=== PATIENT | female | born 1940 ===

== ENCOUNTER → 2018-06-20 | Outpatient (CLI) | payer OTHER | LOC: GMAM 15:05 | PROVIDERS: ATTEND Family Medicine | DX: I10 Essential (primary) hypertension (principal) ==

== ENCOUNTER → 2018-06-30 | Outpatient (CLI) | payer OTHER ==
--- NOTE | 2018-06-30 15:57 | CT ---
EXAM DESCRIPTION: Chest w/Contrast : Computed Tomography. CLINICAL HISTORY: 78 years Female RIGHT LOWER LOBE PULMONARY NODULE R91.1. Shortness of breath. History of tobacco use. COMPARISON: 2 view chest x-ray 06/20/2018. TECHNIQUE: Spiral-axial scans at 5 x 5 mm intervals through the lungs and thorax with IV contrast. 2.5 x 5 mm lung algorithm axial reconstructions. Coronal and sagittal 2.0 Mm reconstructions. No adverse reactions. Total Exam DLP: 371.64 mGy-cm. This exam was performed according to our departmental dose-optimization program which includes automated exposure control, adjustment of the mA and/or kV according to patient size and/or use of iterative reconstruction technique; to reduce radiation dose to as low as reasonably achievable (ALARA). Nodule measurements under 10 mm are given as mean value of 3 axes diameters. FINDINGS: Lungs and large airways: A mass with multiple lobulations and predominantly smooth margins is present in the subpleural location of the posterior lateral right lower lobe measuring 1.7 x 1.4 cm in the transverse plane and 1.2 cm craniocaudal. Density in the central mass ranges from +46 to +69. Some of the margins are irregular. Vessel enters the superior margin of the mass on axial series 4, image 84. Abutting the pleura with no definitive attachment. 3 mm nodule right lower lobe posterior recess image 4/96. 3 mm solid nodule subpleural lateral right upper lobe on image 4/34. 5 mm lobulated solid nodule posterior right upper lobe subpleural on image 4/35. 3 mm lobulated nodule lateral left lower lobe subpleural image 4/97 pleural-parenchymal scarring inferior lingula. Also medial recesses bilateral lower lobes.. Pleural spaces: Smooth pleural nodule approximately 1 cm diameter with adjacent parenchymal lung stranding on image 4/73. No effusion bilaterally or pneumothorax. Mediastinum and [place]: 1.5 cm short axis subcarinal lymph node. Smaller azygos and AP window nodes. No hilar soft tissue mass or adenopathy. Great vessels and Heart: Atherosclerotic calcification brachiocephalic vessels aortic arch, descending thoracic aorta, and coronary arteries. Soft tissues of neck base, axillae, and chest wall: Elongated enlarged right axillary lymph node with microlobulated margins and increased density of surrounding fat measuring 1.6 x 1.0 cm transverse and 2 cm craniocaudal axis. No other enlarged lymph nodes in the right axilla or left axilla. Enlarged inferior pole of the right thyroid lobe measuring 1.3 cm. Enlarged isthmus 1.1 cm thick and not enhancing, and non-enhancing anterior upper pole left lobe 1.4 cm. Upper abdomen: Partial visualization of 2.5 cm mass posterior upper right kidney with fluid density. Partially visualized spleen and adrenal glands negative. No fatty stranding. Air in the common bile duct and intrahepatic ducts with gallbladder not seen. Atherosclerotic calcification in the included abdominal aorta and celiac axis and branches.. Osseous structures: Cervical spondylosis and advanced spondylosis mid thoracic spine T5-T6. No lytic or blastic lesion. IMPRESSION: 1. 1.7 cm multilobulated soft tissue mass in the right lower lobe abutting the pleura with no definite internal fat density or calcifications. Minimal marginal irregularity but no prominent spiculations. Differential includes pulmonary hamartoma, other benign pulmonary tumor, primary malignant neoplasm or metastasis. 5 mm solid nodule in the right upper lobe. 3 mm solid nodule also in the right upper lobe. 3 mm solid nodule in the subpleural left lower lobe. Consider open biopsy versus image guided needle core biopsy of the larger right lower lobe mass. 2. Reactive right axillary lymph node measuring 2 cm greatest diameter without calcification. Consider open biopsy versus image guided needle core biopsy. Electronically signed by: Cody Blanco MD 06/30/2018 3:54 PM [facility]
== END ==
LOC: CT 08:58
PROVIDERS: ATTEND Family Medicine
DX: R91.8 Other nonspecific abnormal finding of lung field (principal)

== ENCOUNTER → 2018-07-04 | Outpatient (CLI) | payer OTHER | LOC: GMAM 16:53 | PROVIDERS: ATTEND Family Medicine | DX: R10.9 Unspecified abdominal pain (principal) ==

== ENCOUNTER → 2018-08-16 | Outpatient (CLI) | payer OTHER ==
--- NOTE | 2018-08-16 15:46 | US ---
EXAM DESCRIPTION: 3D Diagnostic, Bilateral (accession [id number]), Breast,Bilateral (accession [id number]): Ultrasound CLINICAL HISTORY: 78 yearsFemaleABN MAMMO. History of fatty skin tumors all over her body. No personal or family history of breast cancer. Childbirth. Postmenopausal 39 years. HRT previously. Lifetime risk of developing breast cancer (Tyrer-Cuzick model) percentage is 2.2. COMPARISON: CT scan of the chest 06/30/2018. CT scan of abdomen and pelvis on this visit. TECHNIQUE: Transcutaneous scanning of the bilateral breast utilizing rico-scale and Doppler modes. Scanning performed by the digital product manager and Dr. Blanco. Bilateral LM, CC, and MLO projection full-field images, digital mammographic tomosynthesis technique. Bilateral 2-D digital full-field MLO images. 2-D CC spot compression mid lateral right breast. CAD not available. FINDINGS: The breast parenchymal density pattern is: Scattered areas of fibroglandular density. No skin thickening or nipple retraction a circumscribed mass is visible in the posterior third of the upper-outer quadrant of the right breast approximately 8 cm from the nipple at the 9:30 clock position. Approximately 1 cm diameter, dense peripherally and lucency centrally suggests a lymph node. Slightly more inferior and medial and anterior is a focal asymmetry versus mass density without calcifications. Approximately 9 x 6 mm dimensions. Bilateral solitary microcalcifications and vascular calcifications. Focal asymmetry in the middle to posterior third of the left breast in the lower outer quadrant approximately 5 to 6 cm from the nipple, 5:00 position. Not associated with microcalcifications. Ultrasound: Scanning of the left breast at the 5:00 position 6 cm from the nipple. No dominant solid mass. Homogeneous echogenic mass is not vascular abutting the skin surface and most likely a lipoma. Wider than tall orientation with no acoustic shadowing. Scanning of the left breast at the 10:00 position 8 cm from the nipple. Hypoechoic mass with circumscribed margins and central echogenicity and not vascular. Wider than tall orientation with no posterior acoustic signature. No cysts or large calcifications or parenchymal edema. Scanning of the right breast 7:00 position 6 cm from the nipple. No dominant solid mass or distinct cyst. Scanning of the right breast at the 10:00 position 6 cm from the nipple. A hypoechoic mass is noted with angular and protruding margins with a echogenic focus on the posterior margin. Vascularity abutting this mass which measures approximately 7 x 4 mm. Slightly more laterally, is a mostly circumscribed hypoechoic mass with central echogenicity involving most of the mass. This would be consistent with the larger lymph node seen on the lateral superior right breast. Minimal posterior shadowing. IMPRESSION: Solid lesion at the 10:00 position of the right breast 8 cm from the nipple demonstrates findings indicating slight risk of malignancy. ASSESSMENT: BI-RADS CATEGORY 4: SUSPICIOUS. SUB-CATEGORY 4A - LOW SUSPICION FOR MALIGNANCY. FOLLOW-UP: Surgical consultation and tissue diagnosis should be considered. The FINDINGS and the FOLLOW-UP plan were reviewed in person with the patient after the examination. Written communication explaining the IMPRESSION and FOLLOW-UP will be mailed to the patient and referring care provider. Electronically signed by: Cody Blanco MD 08/16/2018 3:43 PM CDT
--- NOTE | 2018-08-16 16:57 | CT ---
EXAM DESCRIPTION: Abdomen/Pelvis w/Contrast: Computed Tomography. CLINICAL HISTORY: 78 years Female ABD PAIN. Elevated serum creatinine and decreased EGFR COMPARISON: CT scan of the chest with IV contrast 06/30/2018. TECHNIQUE: Spiral-axial scans at 5 x 5 mm intervals through the abdomen and pelvis, after 50% of the usual volume of nonionic IV contrast without oral contrast. Reduced volume of contrast was due to decreased renal function. Coronal and sagittal 2.0 mm reconstructions. No delayed scans. No adverse reactions. Total Exam DLP: 875.62 mGy-cm. Limited study due to difficulty obtaining IV access. Contrast was hand injected. This exam was performed according to our departmental dose-optimization program which includes automated exposure control, adjustment of the mA and/or kV according to patient size and/or use of iterative reconstruction technique; to reduce radiation dose to as low as reasonably achievable (ALARA). FINDINGS: Lung bases and pleura: Circumscribed lobulated mass again noted in the lateral right lower lobe subpleural and abutting the pleura measuring 1.7 x 1.4 cm with Hounsfield density +9. Lung bases appear stable with focal pleural thickening in the posterior recess of the left lower lobe. Liver, Stomach, Spleen, Adrenal Glands: Air is noted in the intrahepatic ducts superior right lobe of the medial and lateral left lobe. Dilated bowel filled ducts in the right lobe. Irregular 1 cm region of nonenhancement in the subcapsular right hepatic lobe on axial series 2, image 21 with Hounsfield density +72. Stomach spleen and adrenal glands unremarkable. Pancreas, Gallbladder, Ducts: Gallbladder is not well seen. No surgical clips in the gallbladder fossa or fluid. Common bile duct dilated. Minimal dilation of the distal common bile duct in the pancreatic head which is somewhat irregular and inhomogeneous. Dimensions are approximately 4.2 x 4.1 cm Minimal fatty stranding abutting the uncinate process. Pancreatic duct slightly dilated from the mid body distally to the confluence with the common bile duct. Calcification in the body of the pancreas. No ascites.. Kidneys and Ureters: Right kidney is extremely lobulated with deformity and thinning of the cortex especially on the superior medial and inferior medial aspect. Calcifications are also seen in the mid and lower pole. 3.8 cm cyst posterior mid kidney. Other regions of cortical scarring and cortical thinning in the kidney. The ureter demonstrates intermittent dilation mostly proximally but no radiodense stones in the ureter. 1 cm cyst upper medial pole of the left kidney. No hydronephrosis or perirenal fluid bilaterally. Left ureter unremarkable. Mesentery: No free fluid or free air. Aorta: Moderate atherosclerotic calcification and narrowing of the distal lumen extending into the bilateral common iliac arteries. Small Bowel: Minimal dilation proximally but no significant air-fluid levels. 1 cm cyst with Hounsfield density plus 4.4, in the mid left ilium in the right adnexa on series axial 2, image 63. No fatty stranding. Terminal Ileum/Cecum: Unremarkable. Appendix not visualized. No fatty stranding. Colon: Decompressed distal to the ascending colon. Question of minimal edema in the mucosa of the ascending colon. Minimal redundancy of the sigmoid colon but no complications or significant diverticulosis. Pelvic Organs: A tampon containing air is in the vagina abutting an internal fluid collection or cyst measuring approximately 2.5 x 1.5 cm. No radiodense stones in the urinary bladder.. No free fluid in the pelvis. Spine and Bony Pelvis: Multiple levels of spondylosis most severe at L2-3, L4-5, and L5-S1. Prior posterior fusion construct L3-L4. Significant bilateral foraminal narrowing L2-3 and L4-5. Dextroscoliosis. Abdominal Wall/Back Soft Tissues: Hypertrophic superior lateral acetabula bilaterally with partial femoral head over coverage and joint space narrowing. Bilateral arthrosis SI joint with arthrosis in the pubic symphysis. Bone mineral density loss. IMPRESSION: 1. Prominence of the head of the pancreas but no definite mass. Dilation of the mid and distal pancreatic duct. Question of stranding or lack of definition of the anterior surface of the pancreatic head. Calcification in the mid body. Is there history of pancreatitis? No peripancreatic or periportal nodes. Intrahepatic biliary air in the superior right hepatic lobe and the medial and lateral left hepatic lobe segments. There are dilated intrahepatic ducts in the right lobe. Possible partially enhancing mass in the subcapsular right lobe at the level of the jackie. Consider ultrasound follow-up. No ascites. 2. Scarring and thickening in multiple locations of the right renal cortex which is decreased in size. 2 stones in the mid and inferior kidney but no hydronephrosis. Large posterior mid renal juxta cortical cyst. Small cyst upper left kidney. Minimal prominence of the proximal right ureter but no radiodense stone obstructing. 3. A component in the vagina abutting a large cyst or fluid collection. No free fluid in the pelvis. No radiodense stones in the urinary bladder. 4. Small eccentric cyst with no evidence of obstruction in the mid to distal ileum and no inflammatory changes in the surrounding fat. Question of edema in the mucosa of the ascending colon with no significant fatty stranding. Remainder of the colon appears decompressed with no evidence of obstruction. 5. Lobulated mass in the right lower lobe as previously described on chest CT scan. 6. spondylosis and arthrosis in the lumbar spine and in pelvic joints. Electronically signed by: Cody Blanco MD 08/16/2018 4:54 PM CDT
== END ==
LOC: CT 09:22
PROVIDERS: ATTEND Family Medicine
DX: L03.111 Cellulitis of right axilla (principal); K86.89 Other specified diseases of pancreas; N28.89 Other specified disorders of kidney and ureter; N28.1 Cyst of kidney, acquired; K63.89 Other specified diseases of intestine; R91.8 Other nonspecific abnormal finding of lung field; M47.896 Other spondylosis, lumbar region
CPT/HCPCS: 36415; 74177; 76641; 77066; 80048; G0279

== ENCOUNTER → 2018-09-01 | Outpatient (CLI) | payer OTHER ==
--- NOTE | 2018-09-01 12:04 | OP ---
DATE OF PROCEDURE: 09/01/18 PREOPERATIVE DIAGNOSIS: 1. Abnormal right mammogram. POSTOPERATIVE DIAGNOSIS: 1. Abnormal right mammogram. PROCEDURE: 1. Sonographically guided biopsy of right breast mass at 10 o'clock. SURGEON: Greg Muñoz MD. SCHOOL NURSE: None. ANESTHESIA: Local infiltration of 1% lidocaine. INDICATION: The patient is a 78-year-old female who on routine mammography was found to have an irregular shaped solid mass at the 1 o'clock position. After the risks, benefits and alternatives to sonographically biopsy were discussed and accepted, the patient is brought today to the Ultrasound Suite for sonographically guided biopsy. FINDINGS: The lesion was easily identified. Five good cores were taken. PROCEDURE: The patient was brought to the Ultrasound Unit and placed in the supine position. The right breast was inspected using the ultrasound probe. The lesion was identified in the 10 o'clock position. The breast medial to the ultrasound probe was prepped with Betadine and draped with sterile towels. Local infiltration of anesthesia was obtained with 1% lidocaine. A 25-gauge needle was introduced and the lesion was identified. The tissue between the lesion and the skin incision was infiltrated with local anesthesia. A stab wound was then made with a 15 blade and multiple passes were made with the biopsy needle obtaining good cores under ultrasound guidance. Hemostasis was obtained with pressure. A single suture of 4-0 Nylon was placed in the incision. Sterile pressure dressing was applied. The patient tolerated the procedure well. Estimated blood loss was less than 5 mL. All sponge, needle and instrument counts were correct. #[id number] MTD[facility]
--- NOTE | 2018-09-05 10:25 | US ---
EXAM DESCRIPTION: Biopsy/Needle Guidance: Ultrasound. CLINICAL HISTORY: 78 years Female ABNORMAL MAMMOGRAM RIGHT BREAST COMPARISON: Diagnostic ultrasound of the right breast on 08/16/2018 TECHNIQUE: The procedure was performed by Dr. Muñoz. Repeat ultrasound localized breast mass at the 10:00 position of the right breast 6 cm from the nipple.. Sterile preparation. Sterile ultrasound guidance during needle passes. FINDINGS: Images taken before the procedure again show a hypoechoic solid lobulated nodule which appears more taller than wide than on the prior study. Variable posterior acoustic signature. Images during the procedure show the echogenic needle passing through the mass multiple times. IMPRESSION: Successful, ultrasound-guided needle core biopsy of right breast mass. Adequate core samples were obtained. Pathology examination at remote facility, results pending. Electronically signed by: Cody Blanco MD 09/05/2018 10:23 AM CDT
== END ==
LOC: US 10:50
PROVIDERS: ATTEND Surgery
DX: R92.8 Other abnormal and inconclusive findings on diagnostic imaging of breast (principal)

== ENCOUNTER → 2018-12-29 | Outpatient (CLI) | payer OTHER ==
[~2018-12-29] MED LIST: LACTATED RINGERS 1,000 ML ONE; SODIUM CHL 0.9% 100ML MINI-BAG 100 ML IVPB ONE; ceFAZolin SODIUM 1 GM VIAL ONE
== END ==
LOC: LAB.O 09:14 → AMB 09:14 → EDSTATUS 11:17
PROVIDERS: ATTEND Surgery
DX: Z01.818 Encounter for other preprocedural examination (principal); C50.911 Malignant neoplasm of unspecified site of right female breast
CPT/HCPCS: 69209; 80048; 85025; J0690; J7050; J7120

== ENCOUNTER 2018-12-30 05:37 | Day surgery (SDC) | payer OTHER ==
[2018-12-30] MEDS ORDERED: PROPOFOL 200 MG/20 ML VIAL IV ONE (07:00)
[2018-12-30] MEDS ORDERED: ePHEDrine SULF 50 MG/ML ONE (07:00)
[2018-12-30] MEDS ORDERED: LACTATED RINGERS 1,000 ML IVS ONE (09:30)
[2018-12-30] MEDS ORDERED: LIDOCAINE 1% 50 ML VIAL INJ ONE (12:35)
[2018-12-30] MEDS ORDERED: SODIUM BICARBONATE VIAL 50 MEQ/50 ML VIAL ONE (12:35)
[2018-12-30] MEDS ORDERED: fentaNYL CITRATE INJ 50 MCG/ML AMP ONE (12:40)
[2018-12-30] MEDS ORDERED: KETAMINE HCL 50 MG/ML SYG IV ONE (12:40)
[2018-12-30] MEDS ORDERED: ceFAZolin SODIUM 1 GM VIAL IVPB ONE (12:45)
--- NOTE | 2018-12-30 14:23 | OP ---
DATE OF PROCEDURE: 12/30/18 PREOPERATIVE DIAGNOSIS: 1. Carcinoma of the right breast. POSTOPERATIVE DIAGNOSIS: 1. Carcinoma of the right breast. PROCEDURE: 1. Wide excision, partial mastectomy, right breast mass after needle localization. SURGEON: Greg Muñoz MD. PRODUCTION ANALYST: Caleb Lopez MD. ANESTHESIA: IV sedation by Anesthesia and local infiltration. INDICATION: The patient is a 78-year-old female who was found at the same time to have an irregular mass in the right breast and a mass in her right lung. She underwent needle core biopsy of the right breast mass which revealed an invasive carcinoma that was ER negative, ID mildly positive and HER2 positive. 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 She underwent cardiac testing and significant long discussion with Oncology about this lady who also has mild dementia. Finally, we decided to do excision of the breast mass with negative margins and probably hormone manipulation, chemotherapy and then once she is over this smaller operation, proceed with the carcinoid of the lung treatment. The patient was brought to the Surgical Suite for partial mastectomy after the risks, benefits and alternatives of the procedure were discussed and accepted. FINDINGS: The guidewire was easily identified and the mass was identified in the specimen by mammogram and the margins were marked for pathology. PROCEDURE: The patient was brought to the Surgical Suite and placed in supine position. She was sedated minimally. The right breast was prepped and draped in the usual sterile manner. Surgical time-out was taken. An incision was marked, first with a marking pen, then with infiltration of anesthesia. The skin was incised with a knife which also a small skin ellipse to take the guidewire was taken with the specimen. The dissection was then carried down widely in all directions. The specimen was then marked and sent for radiologic evaluation. Hemostasis was obtained with electrocautery. When hemostasis was noted to be adequate, the wound was irrigated copiously with saline and then closed in layers with 3-0 Vicryl and then the skin was approximated with 4-0 Vicryl subcuticular sutures, benzoin and Steri-Strips. When Radiology reported that the specimen contained the mass, the patient was then wrapped with a pressure dressing, awakened and taken back to the Ambulatory Unit in stable condition. Estimated blood loss was less than 25 mL. All sponge, needle and instrument counts were correct. #[id number] [facility]
--- NOTE | 2018-12-30 14:35 | US ---
EXAM DESCRIPTION: Biopsy/Needle Guidance CLINICAL HISTORY: 78 years Female, BREAST BIOPSY AFTER NEEDLE LOCALIZATION RIGHT BREAST. COMPARISON: Ultrasound-guided needle core biopsy 09/01/2018. Ultrasound scan of right breast lumpectomy specimen following excision later today. TECHNIQUE: The procedure was explained to the patient with risks and benefits. The patient gave verbal and written consent. Repeat ultrasound localized the lesion at the 10:00 position, right breast, 6 cm from the nipple. Sterile preparation. Sterile ultrasound guidance. 1% Xylocaine 9:1 ratio with sodium bicarbonate for skin and subdermal anesthesia. Superior medial to inferior lateral approach. Inserted 7 cm Kopans wire needle system to the edge of the lesion, utilizing sterile ultrasound guidance. Wire advanced through the lesion. Needle was removed. Excess wire was clipped. The patient tolerated the procedure well with no immediate complications . FINDINGS: Images taken during the procedure show the needle tip abutting the mass and the wire and hook within the mass. IMPRESSION: Successful, ultrasound-guided, needle wire localization of mass in the upper outer quadrant of the right breast using sterile technique. Pending ultrasound scan of right breast lumpectomy specimen. Electronically signed by: Cody Blanco MD 12/30/2018 2:34 PM CDT
[2018-12-30 15:07] VITALS: BP 125/88; TEMP 97.3; O2SAT 97
--- NOTE | 2018-12-30 15:53 | US ---
EXAM DESCRIPTION: Specimen Study: Ultrasound CLINICAL HISTORY: 78 yearsFemale right breast lumpectomy after ultrasound-guided needle wire localization COMPARISON: Ultrasound guided, needle wire localization of right breast today. TECHNIQUE: Ultrasound of right breast biopsy specimen. Specimen is placed between 2 sheets of x-ray film with ultrasound gel overlying the top sheet and overlying the specimen. FINDINGS: The right breast biopsy specimen contains the hypoechoic lobulated mass with angular margins seen on today's procedure images and also seen on images from previous examinations. The distal wire and hook are within the specimen. IMPRESSION: Successful, ultrasound guided, needle wire localization of mass in the upper outer quadrant right breast, with mass present in the biopsy specimen. The specimen is pending pathologic examination at remote laboratory Electronically signed by: Cody Blanco MD 12/30/2018 3:52 PM CDT
== END 2018-12-30 14:45 | disposition home or self-care (01) ==
LOC: AMB 05:37
PROVIDERS: ATTEND Surgery
DX: C50.911 Malignant neoplasm of unspecified site of right female breast (principal); I10 Essential (primary) hypertension; F03.90 Unspecified dementia, unspecified severity, without behavioral disturbance, psychotic disturbance, mood disturbance, and anxiety; G25.81 Restless legs syndrome; Z90.710 Acquired absence of both cervix and uterus; Z87.891 Personal history of nicotine dependence; Z79.82 Long term (current) use of aspirin; Z79.899 Other long term (current) drug therapy
CPT/HCPCS: 00400; 19301; 81001; 87077; 87086; 87186; 88307; 88342; 88360; J0690; J3010; J3490; J7120

== ENCOUNTER 2019-01-24 05:29 | Day surgery (SDC) | payer OTHER ==
[2019-01-24] MEDS ORDERED: SODIUM CHL 0.9% 100ML MINI-BAG 100 ML IVPB ONE (07:07)
[2019-01-24] MEDS ORDERED: LACTATED RINGERS 1,000 ML ONE (07:07)
[2019-01-24] MEDS ORDERED: ceFAZolin SODIUM 1 GM VIAL ONE (07:08)
[2019-01-24] MEDS ORDERED: LIDOCAINE 1% 50 ML VIAL INJ ONE (07:10)
[2019-01-24] MEDS ORDERED: SODIUM CHLORIDE 0.9% 50 ML VIAL ONE (07:10)
[2019-01-24] MEDS ORDERED: SODIUM BICARBONATE VIAL 50 MEQ/50 ML VIAL ONE (07:10)
[2019-01-24] MEDS ORDERED: HEPARIN SODIUM 100 U/ML 5 ML SYG IV ONE (07:10)
[2019-01-24] MEDS ORDERED: fentaNYL CITRATE INJ 50 MCG/ML AMP ONE (08:07)
[2019-01-24] MEDS ORDERED: KETAMINE HCL 100 MG/ML VIAL ONE (08:07)
[2019-01-24] MEDS ORDERED: MIDAZOLAM INJ 2 MG/2 ML VIAL ONE (08:07)
--- NOTE | 2019-01-24 09:44 | RAD ---
Procedure: XR CHEST 1 VIEW Exam Date: 01/24/2019 Ordering Provider: Greg Muñoz Clinical Indication: S/P PORT PLACEMENT Comparison: 06/30/2018 Findings: Left chest port with tip extending to the mid SVC. Borderline cardiomegaly. Aortic calcification. No focal lung consolidation. Known right lower lobe nodule measuring 1.6 cm. No pleural effusion. No pneumothorax. No acute osseous abnormality. Impression: 1. Left chest port with tip extending to the mid SVC. No pneumothorax. Electronically signed by: Rodney Rodriguez MD 01/24/2019 9:42 AM CDT
[2019-01-24] MEDS ORDERED: PROPOFOL 200 MG/20 ML VIAL IV ONE (10:00)
[2019-01-24] MEDS ORDERED: LIDOCAINE 1% 10 ML VIAL INJ ONE (10:00)
[2019-01-24] MEDS ORDERED: DEXAMETHASONE INJ 10 MG/ML VIAL IV ONE (10:00)
[2019-01-24] MEDS ORDERED: ePHEDrine SULF 50 MG/ML IV ONE (10:00)
--- NOTE | 2019-01-24 10:10 | OP ---
DATE OF PROCEDURE: 01/24/19 PREOPERATIVE DIAGNOSIS: 1. Carcinoma of the right breast. 2. Carcinoid tumor of the right lung. POSTOPERATIVE DIAGNOSIS: 1. Carcinoma of the right breast. 2. Carcinoid tumor of the right lung. PROCEDURE: 1. Insertion of left subclavian venous access port. SURGEON: Greg Muñoz MD. TREATER: None. ANESTHESIA: Local infiltration of 1% lidocaine with bicarb and IV sedation MAC by Anesthesia. INDICATION: The patient is a 78-year-old female who has a HER2 positive, ER/WI negative breast cancer status post partial mastectomy who presents today for insertion of port placement for chemotherapy after which she will undergo resection of her right lung mass. The risks, benefits and alternatives to the procedure were discussed and accepted in the office prior to this appointment. FINDINGS: The C-arm showed first the guidewire and then the catheter in good position in the superior vena cava. Stat portable chest x-ray is pending. PROCEDURE: After adequate sedation was performed in the supine position, the patient was prepped and draped in the usual sterile manner. She was also given 2 grams of Ancef. A surgical time-out was taken. The infraclavicular area was then infiltrated with local anesthesia. A 22-gauge needle was introduced under the clavicle. At first, arterial blood was identified, then with the second stick, venous blood was identified. The 18-gauge thin wall needle was then introduced and blood was easily aspirated. The guidewire was introduced without difficulty and the needle was removed. A towel was placed over the field. At this point, the guidewire was identified in position in the superior vena cava. A port pocket was formed in the usual manner with local infiltration of anesthesia, sharp knife and electrocautery. The insertion site incision was made over the guidewire with a 15 blade. When this was done, the port was introduced into the port pocket and sutured in place with two 2-0 Prolene sutures and tunneled to the insertion site. It was then cut to appropriate length. The dilator introducer was introduced over the guidewire and the guidewire and dilator were removed. The catheter which had been cut to appropriate length was cleaned with heparinized saline. It was then introduced through the introducer. The introducer was removed in the usual manner. When this was done, a towel was placed over the field and the catheter was identified in good position in the superior vena cava by fluoroscopy. At this point, the port pocket was closed in two layers with the subcutaneous tissues reapproximated with interrupted 3-0 Vicryl sutures. The skin edges were approximated with 4-0 Vicryl subcuticular sutures, benzoin and Steri-Strips. Prior to closure of the port pocket, the port was accessed with a Carter needle, aspirated and then flushed, first with heparinized saline and then with Heplock and de-accessed. The insertion site was also closed with a single 4-0 Vicryl subcuticular suture, benzoin and Steri-Strips. Sterile dressings were applied. The patient was awakened and taken to the Ambulatory Unit in stable condition. Estimated blood loss was less than 25 mL. All sponge, needle and instrument counts were correct. #[id number] [facility]
[2019-01-24 11:36] VITALS: BP 154/78; TEMP 97.5; O2SAT 96
--- NOTE | 2019-01-24 22:13 | RAD ---
EXAM DESCRIPTION: Fluoroscopy Up to 1Hr CLINICAL HISTORY: 78 years Female, INSERTION LEFT PORT COMPARISON: None. IMPRESSION: Multiple intraoperative fluoroscopic images saved for the benefit of the surgeon during left chest wall port placement. Please see procedure report for full details. Fluoroscopy time: 4 seconds Fluoroscopic images: 1 Electronically signed by: Isiah Hicks MD 01/24/2019 10:12 PM CDT
== END 2019-01-24 10:50 | disposition home or self-care (01) ==
LOC: AMB 05:29
PROVIDERS: ATTEND Surgery
DX: C50.911 Malignant neoplasm of unspecified site of right female breast (principal); D3A.090 Benign carcinoid tumor of the bronchus and lung; I10 Essential (primary) hypertension; F03.90 Unspecified dementia, unspecified severity, without behavioral disturbance, psychotic disturbance, mood disturbance, and anxiety; Z90.710 Acquired absence of both cervix and uterus; Z90.11 Acquired absence of right breast and nipple; Z79.82 Long term (current) use of aspirin; Z79.899 Other long term (current) drug therapy
CPT/HCPCS: 00532; 36558; 36561; 71045; 76000; A4216; C1788; J0690; J1100; J1642; J2250; J3010; J3490; J7050; J7120

== ENCOUNTER → 2019-03-31 | Outpatient (CLI) | payer OTHER ==
--- NOTE | 2019-03-31 11:37 | US ---
EXAM DESCRIPTION: Liver: ULTRASOUND. CLINICAL HISTORY: ABNORMAL LABS history of breast cancer diagnosed 2018. COMPARISON: CT abdomen and pelvis August 2018. TECHNIQUE: Transabdominal scannin-dimensional and Doppler modes. FINDINGS: Gallbladder: normal size, shape, echogenicity; no intraluminal stones or sludge. No fluid around the gallbladder. No wall thickening. mm Non-tender with transducer pressure. Common bile duct: caliber 5.4 mm within normal limits. Liver: Focal complex lesion in the right lobe measuring 1.7 x 1.5 cm, otherwise normal echogenicity; contour liver capsule smooth where seen. No fluid around the liver. Intrahepatic biliary ducts normal caliber and air shadowing versus adjacent calcifications. Doppler hepatopedal flow portal vein. 8mm caliber. Long axis right lobe 14.5 cm Pancreas: normal size and echogenicity. Duct not seen. Right kidney: long axis measures 7.9 cm. Increased cortical echogenicity, compared to the liver. Significantly reduced cortical thickness 7 mm mid renal. No echogenic stones or hydronephrosis. Aorta proximal: 1.9 cm. IMPRESSION: 1. Question of a 1.7 cm lesion in the right lobe of the liver. Consider CT scan of the liver and abdomen with noncontrast/contrast protocol for the liver. Air in the hepatobiliary system from prior cholecystectomy. 2. Advanced chronic renal disease findings in the right kidney. Electronically signed by: Cody Blanco MD 03/31/2019 11:35 AM [facility]
== END ==
LOC: US 10:05
PROVIDERS: ATTEND Internal Medicine Hematology & Oncology
DX: C7A.090 Malignant carcinoid tumor of the bronchus and lung (principal); C50.919 Malignant neoplasm of unspecified site of unspecified female breast; N18.9 Chronic kidney disease, unspecified

== ENCOUNTER → 2019-09-29 | Outpatient (CLI) | payer OTHER ==
--- NOTE | 2019-10-02 10:40 | MRI ---
EXAM DESCRIPTION: Lumbar Spine w/wo Contrast: Magnetic Resonance Imaging. CLINICAL HISTORY: BACK PAIN COMPARISON: Abdomen CT scan with contrast August 2018. TECHNIQUE: Multiplanar, MRI, multiple standard sequences, without and with 1 mL per 5 kg body weight Gadolinium IV contrast, lumbar spine. No adverse reactions. FINDINGS: L5-S1: L5-S1 disc space is well identified on T2 axial series 501, image 3. Marked narrowing of the disc space with interbody metallic material interpreted to be fusion material. Left posterior granulation tissue bulging from the disc space. Minimal degenerative hypertrophy of the facet joints and posterior flavum ligaments (canal elements). Partial left laminectomy and decompression. Bilateral mild foraminal narrowing. No abnormal contrast enhancement. L4-L5: Moderate endplate reactive changes in the midline more advanced to the left of midline. Posterior disc spur complex also left lateral encroaching on the left foramen. Minimal anterior disc bulge and bulge into the right foramen, with mild stenosis. Narrowing of the left subarticular recess. Posterior metallic fusion of the spinous processes. No abnormal enhancement. Enhancement of the endplate changes but no disc or canal enhancement. Minimal degenerative hypertrophy of the canal elements. Mild canal narrowing. L3-L4: Disc desiccation with posterior disc space loss and endplate Schmorl's nodes. Posterior broad-based bulge. Moderate degenerative hypertrophy of the canal elements. AP canal diameter 9 mm. Mild right foraminal narrowing and mild to moderate left foraminal narrowing with facet abutting the exiting nerve root. Posterior spinous processes with metallic fusion. Minimal enhancement of the endplate changes with normal disc, canal and posterior enhancement. L2-L3: Mild to moderate disc space loss. Moderate endplate reactive changes mid and right side with superior and inferior Schmorl's nodes. Early/acute spondylosis left side endplates with enhancement. Anterior disc bulge and spur complex. Posterior broad-based disc spur complex with 2 mm grade 1 retrolisthesis and right subarticular recess Stenosis encroaching on the descending right L3 nerve. Mild degenerative hypertrophy of the canal elements. AP canal diameter 8 mm to the right of midline. Mild left foraminal narrowing and moderate right foraminal stenosis. Minimal enhancement of the endplate changes with no disc or canal enhancement. L1-L2: Disc desiccation with anterior bulging and endplate ridging. Schmorl's node inferior L1 endplate. Posterior mild bulge and 3 mm grade 1 retrolisthesis. Minimal degenerative hypertrophy of the canal elements. Canal is patent. Mild narrowing of the right foramen. Minimal narrowing of the subarticular recesses. Enhancement of the endplate changes with normal enhancement of the disc and canal. T12-L1: Disc desiccation with trace amount of anterior and posterior bulging. Anterior endplate reactive changes. Canal elements unremarkable. Canal and foramina are patent. Normal enhancement also in the disc. Conus terminates at this level with normal enhancement. T12-L3 levoscoliosis. Included cord and conus with normal signal, size, and enhancement. Enhancing hemangioma in the T11 vertebral body. Vertebral bodies are not compressed at any level. Otherwise normal Contrast enhancement. Paravertebral soft tissues show a nonenhancing fluid density mass projecting from the posterior right renal cortex most likely a cyst. Circumscribed enhancing complex mass on the posterior aspect of the superior pole of the left kidney..Paraspinal muscle atrophy. Perivertebral contrast enhancement please see above. IMPRESSION: 1. Multiple levels of spondylosis, disc desiccation, degenerative hypertrophy of the posterior flavum ligaments and facet joints. Also scoliosis. No abnormal disc enhancement suggesting discitis. 2. Moderate right paracentral canal stenosis at L2-L3 with right subarticular recess stenosis and grade 1 retrolisthesis. Moderate right foraminal stenosis. 3. Mild right foraminal stenosis at L4-L5 due to disc spur complex. 4. Multifactorial mild central canal stenosis at L3-L4 and moderate left foraminal narrowing. Please see above FINDINGS for discussion of other levels. Electronically signed by: Cody Blanco MD 10/02/2019 10:39 AM CDT
== END ==
LOC: MRI 09:50
PROVIDERS: ATTEND Internal Medicine Medical Oncology
DX: M47.896 Other spondylosis, lumbar region (principal); M51.36 Other intervertebral disc degeneration, lumbar region; M43.16 Spondylolisthesis, lumbar region; M46.96 Unspecified inflammatory spondylopathy, lumbar region; M24.28 Disorder of ligament, vertebrae; M48.061 Spinal stenosis, lumbar region without neurogenic claudication; M25.78 Osteophyte, vertebrae; M51.85 Other intervertebral disc disorders, thoracolumbar region; M41.85 Other forms of scoliosis, thoracolumbar region; D18.09 Hemangioma of other sites; C7A.090 Malignant carcinoid tumor of the bronchus and lung; C50.411 Malignant neoplasm of upper-outer quadrant of right female breast; M79.9 Soft tissue disorder, unspecified; N28.9 Disorder of kidney and ureter, unspecified; M62.58 Muscle wasting and atrophy, not elsewhere classified, other site

== ENCOUNTER 2020-03-06 13:33 | Emergency (ER) | payer OTHER ==
[2020-03-06 14:01] VITALS: TEMP 97.3
--- NOTE | 2020-03-06 14:03 | ED.PDOC ---
History of Present Illness - General Chief Complaint: General Stated Complaint: dizziness, hypertension Time Seen by Provider: 03/06/20 13:36 Source: patient, RN notes reviewed, Vital Signs reviewed Exam Limitations: no limitations - History of Present Illness Initial Comments: 80 yo F with hx of active breast cancer on chemotherapy comes in with elevated bp and dizziness. states the room started spinning and she fell to the floor. has been having intermittent dizziness since, no fever no headache. + nausea, no emesis. no chest pain, change invision, shortness of breath. Bp at home running 190/105 max. Allergies/Adverse Reactions: Allergies NO KNOWN ALLERGY Allergy (Verified 12/29/18 14:44) Home Medications: Ambulatory Orders Bisoprolol & Hydrochlorothiazi [Bisoprolol Fumarate/Warren 5-6.25 mg] 1 tab PO BID 12/29/18 Lisinopril 10 mg PO DAILY 12/29/18 Paroxetine HCl [Paxil] 10 mg PO DAILY 12/29/18 Ropinirole Hydrochloride [Ropinirole HCl] 4 mg PO TID 12/29/18 Hydrochlorothiazide 12.5 mg PO DAILY #14 tab 03/06/20 Review of Systems - Review of Systems Constitutional: Denies: chills, fever, malaise EENTM: States: other - no tinnitus or hearing loss. Denies: blurred vision, double vision, ear discharge, throat pain Respiratory: Denies: cough, short of breath, stridor Cardiology: Denies: chest pain, palpitations, syncope Gastrointestinal/Abdominal: States: nausea. Denies: abdominal pain, constipation, diarrhea, vomiting Genitourinary: Denies: dysuria, frequency, hematuria Musculoskeletal: Denies: joint pain, muscle pain Neurological: Denies: headache, numbness, paresthesia, seizure, tingling, tremors, weakness Endocrine: Denies: increased urine, unexplained weight gain, unexplained weight loss Hematologic/Lymphatic: Denies: blood clots, easy bleeding, easy bruising Past Medical History (General) - Patient Medical History Hx Seizures: No Hx Stroke: No Hx Dementia: No Hx Asthma: No Hx of COPD: No Hx Cardiac Disorders: No Hx Congestive Heart Failure: No Hx Pacemaker: No Hx Hypertension: Yes Hx Diabetes: No Hx Cancer: Yes - breast Hx MRSA: No Surgical History: appendectomy, cholecystectomy, Hysterectomy Family Medical History - Family History Mother Family History: No Known Physical Exam - Physical Exam General Appearance: Alert, Comfortable, No apparent distress, Well Developed, Well Groomed, Well Hydrated, Well Nourished Eye Exam: bilateral normal Ears, Nose, Throat: hearing grossly normal, normal ENT inspection Neck: non-tender, full range of motion, supple, normal inspection Respiratory: chest non-tender, lungs clear, normal breath sounds, no respiratory distress, no accessory muscle use Cardiovascular/Chest: normal peripheral pulses, regular rate, rhythm, no edema, no gallop, no JVD, no murmur Peripheral Pulses: radial,right: 2+, radial,left: 2+ Gastrointestinal/Abdominal: normal bowel sounds, non tender, soft, no organomegaly, no pulsatile mass Rectal Exam: deferred Back Exam: normal inspection, no CVA tenderness, no vertebral tenderness Extremity: normal range of motion, non-tender, normal inspection, no pedal edema, no calf tenderness, normal capillary refill 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 negative HINTS exam. The data reviewed when caring for this patient included: nurse notes, prior records, etc. The history and assessments from nurses notes were reviewed and considered, and the patient's home medication list was also reviewed and considered. My assessment and the results of testing completed here in the ED were discussed with the patient. All questions were answered, and they express understanding of my assessment and the plan. They have been instructed to return if their symptoms worsen, and have been asked to follow up with their primary care physician to recheck today's presenting complaint. Strict return precautions given. I have reviewed medication, benefits, alternatives and side effects. Patient decided to proceed with medication. Priya Christian DO #[id number] - EKG/XRAY/CT EKG: Sinus Comments: no stemi. no prior for comparison. Departure - Departure Clinical Impression: Vertigo Time of Disposition: 14:47 Disposition: Discharge to Home or Self Care Departure Forms: ED Discharge - Pt. Copy, Patient Portal Self Enrollment Instructions: Vertigo (a Type of Dizziness) (DC), Vestibular Exercises Referrals: Dallas Cano MD [Primary Care Provider] - 1-5 Days Prescriptions: Hydrochlorothiazide 12.5 mg PO DAILY #14 tab Home Medications: Ambulatory Orders Bisoprolol & Hydrochlorothiazi [Bisoprolol Fumarate/Warren 5-6.25 mg] 1 tab PO BID 12/29/18 Lisinopril 10 mg PO DAILY 12/29/18 Paroxetine HCl [Paxil] 10 mg PO DAILY 12/29/18 Ropinirole Hydrochloride [Ropinirole HCl] 4 mg PO TID 12/29/18 Hydrochlorothiazide 12.5 mg PO DAILY #14 tab 03/06/20 Additional Instructions: Consider Vestibular rehabilitation/physical therapy. Recommend you discuss with your primary care physician. If symptoms continue may need to discuss MRI of the brain or carotid ultrasound of neck.
[2020-03-06] MEDS ORDERED: MECLIZINE HCL 12.5 MG TAB PO ONE (14:04)
--- NOTE | 2020-03-06 14:52 | CT ---
EXAM: Head INDICATION: dizziness, hx of cancer . COMPARISON: None available TECHNIQUE: CT of the head was performed without IV contrast. Multiple axial images and multiplanar reconstructions were generated. This exam was performed according to our departmental dose-optimization program, which includes automated exposure control, adjustment of the mA and/or kV according to patient size and/or use of iterative reconstruction technique. FINDINGS: No CT evidence for acute cortical infarct. Encephalomalacia in the posterior left parietal lobe and in the right occipital lobe, compatible with remote infarcts. A small remote cortical infarct is also seen in the anterior left frontal lobe (axial series 2 image 20). No acute intracranial hemorrhage. No mass effect or midline shift. No hydrocephalus. Scattered patchy hypointensity in the subcortical and periventricular white matter bilaterally. This finding is nonspecific, but most likely reflects mild chronic microvascular ischemic disease. Global parenchymal volume loss. Intracranial atherosclerosis. Note is made that streak artifact mildly degrades the evaluation of the brainstem. Unremarkable appearance of the visualized globes and orbits. The calvaria and skull base are intact. The paranasal sinuses and mastoid air cells are clear. IMPRESSION: 1. No acute intracranial abnormality. 2. Remote left parietal, small left frontal, and right occipital infarcts on a background of mild chronic microvascular ischemic disease. 3. Intracranial atherosclerosis and global parenchymal volume loss. Electronically signed by: Jazmyne Cardoso MD 03/06/2020 2:51 PM [facility]
[2020-03-06 19:20] VITALS: BP 161/85; O2SAT 98
== END 2020-03-06 16:30 | disposition home or self-care (01) ==
LOC: ER 13:33
DX: R42 Dizziness and giddiness (principal); C50.919 Malignant neoplasm of unspecified site of unspecified female breast; I10 Essential (primary) hypertension; Z92.21 Personal history of antineoplastic chemotherapy; Z79.899 Other long term (current) drug therapy